=== PATIENT | female | born 1945 | race Two or more races ===

== ENCOUNTER 2022-12-13 18:40 | Inpatient (IN) | payer MEDICARE, MEDICAID ==
[~2022-12-13] VITALS: Ht 172.7 cm; Wt 60.7 kg
[2022-12-13 19:45] LABS: Basophils # (auto) 0.1 10 ^3/uL (0-0.2); Eosinophils # (auto) 0.1 10 ^3/uL (0-0.8); Eosinophils % (auto) 0.9 % (0.0-7.0); Hematocrit 33.3 % (36.0-46.0); Hemoglobin 10.9 g/dL (12.2-16.2); Lymphocytes # (auto) 1.2 10 ^3/uL (0.4-5.4); Lymphocytes % (auto) 19.3 % (10.0-50.0); Mean Corpuscular Hemoglobin 29.5 pg (28.0-32.0); Mean Corpuscular Hgb Conc. 32.8 g/dL (32.0-36.0); Monocytes # (auto) 0.4 10 ^3/uL (0-1.3); Monocytes % (auto) 6.2 % (0.0-12.0); Neutrophils # (auto) 4.5 10 ^3/uL (1.6-8.6); Neutrophils % (auto) 72.6 % (37.0-80.0); Nucleated Red Blood Cells % 0.1 %; Red Cell Distribution Width 18.7 % (11.8-14.3); White Blood Cell 6.2 10^3/uL (4.4-10.8)
[2022-12-13 20:03] LABS: Albumin 1.9 g/dL (3.4-5.0); Calcium 7.9 mg/dL (8.5-10.1); Potassium 4.1 mmol/L (3.5-5.1)
[2022-12-13 20:11] LABS: BUN/Creatinine Ratio 32.3 (10.0-20.0); Bilirubin, Total 0.5 mg/dL (0.2-1.0); Total Protein 5.5 g/dL (6.4-8.2)
[2022-12-13 21:27] VITALS: PULSE 97; RESP 20; O2SAT 96
[2022-12-14 03:50] LABS: Urine Bacteria NONE SEEN /hpf (None Seen); Urine Blood 1+ /uL (Negative); Urine WBC 290 /hpf (0 - 5); Urine WBC Clumps PRESENT /hpf (None Seen)
[2022-12-14] MEDS ORDERED: cefTRIAXone 1GM/50ML D5W 50 ML IV ONE (04:00)
[2022-12-14] MEDS ORDERED: LACTATED RINGER'S 1,000 ML IV ONE (04:00)
[2022-12-14 04:15] VITALS: PULSE 91; RESP 18; O2SAT 98
[2022-12-14] MEDS ORDERED: MORPHINE SULFATE INJ 2 MG/ml SYRG IV PRN (05:00)
[2022-12-14] MEDS ORDERED: ACETAMINOPHEN 325 MG TAB PO PRN (05:00)
[2022-12-14] MEDS ORDERED: NITROGLYCERIN 0.4 MG SL TAB SL PRN (05:00)
[2022-12-14] MEDS ORDERED: ONDANSETRON HCL 4 MG/2 ML VIAL IV PRN (05:00)
[2022-12-14 08:00] VITALS: PULSE 84; RESP 18; O2SAT 96
[2022-12-14] MEDS ORDERED: PANTOPRAZOLE 40 MG TAB PO SCH (10:00)
[2022-12-14] MEDS: FUROSEMIDE 20 MG TAB PO SCH (11:39)
[2022-12-14] MEDS: DIGOXIN 0.125 MG TAB PO SCH (11:40)
[2022-12-14] MEDS: APIXABAN 2.5 MG TAB PO SCH ×3 (11:40→21:18)
[2022-12-14] MEDS: METOPROLOL SUCCINATE XL 50 MG TAB PO SCH (11:41)
[2022-12-14] MEDS: SODIUM CHLORIDE 0.9% 1,000 ML IV SCH (14:45)
[2022-12-14 19:20] VITALS: PULSE 82; RESP 18; O2SAT 95
[2022-12-14] MEDS: ATORVASTATIN 20 MG TAB PO SCH ×2 (21:12→21:18)
[2022-12-15] MEDS: SODIUM CHLORIDE 0.9% 1,000 ML IV SCH ×2 (00:50→13:20)
[2022-12-15 00:52] VITALS: BP 99/63; PULSE 79; RESP 16; TEMP 97.5; O2SAT 94
[2022-12-15] MEDS ORDERED: CLIN-203 PO (01:42)
[2022-12-15] MEDS ORDERED: ATOR40TA52 PO (01:42)
[2022-12-15] MEDS ORDERED: FUR20T PO (01:42)
[2022-12-15] MEDS ORDERED: AMIO200T13 PO (01:42)
[2022-12-15] MEDS ORDERED: FAMO-12 PO (01:42)
[2022-12-15] MEDS ORDERED: METO25TA93 PO (01:42)
[2022-12-15] MEDS ORDERED: DIGO0.12 PO (01:42)
[2022-12-15] MEDS ORDERED: APIX2.5T PO (01:42)
[2022-12-15 05:00] VITALS: BP 105/64; PULSE 78; RESP 16; TEMP 97; O2SAT 94
[2022-12-15 08:00] VITALS: BP 93/50; PULSE 82; RESP 16; TEMP 97.3; O2SAT 94
[2022-12-15] MEDS: cefTRIAXone 1GM/50ML D5W 50 ML IV SCH (08:45)
[2022-12-15] MEDS: FUROSEMIDE 20 MG TAB PO SCH (10:00)
[2022-12-15] MEDS: METOPROLOL SUCCINATE XL 50 MG TAB PO SCH (10:00)
[2022-12-15] MEDS: DIGOXIN 0.125 MG TAB PO SCH (10:00)
[2022-12-15] MEDS: APIXABAN 2.5 MG TAB PO SCH ×2 (10:00→21:09)
[2022-12-15 15:08] LABS: Basophils # (auto) 0.1 10 ^3/uL (0-0.2); Basophils % (auto) 1.1 % (0.0-2.0); Eosinophils # (auto) 0.1 10 ^3/uL (0-0.8); Eosinophils % (auto) 2.4 % (0.0-7.0); Hematocrit 29.1 % (36.0-46.0); Hemoglobin 9.5 g/dL (12.2-16.2); Lymphocytes # (auto) 0.8 10 ^3/uL (0.4-5.4); Lymphocytes % (auto) 14.5 % (10.0-50.0); Mean Corpuscular Hemoglobin 29.5 pg (28.0-32.0); Mean Corpuscular Hgb Conc. 32.5 g/dL (32.0-36.0); Mean Corpuscular Volume 90.7 fL (80.0-100.0); Monocytes # (auto) 0.3 10 ^3/uL (0-1.3); Monocytes % (auto) 5.9 % (0.0-12.0); Neutrophils % (auto) 76.1 % (37.0-80.0); Nucleated Red Blood Cells % 0.1 %; Red Blood Cells 3.21 10^6/uL (4.0-5.20); Red Cell Distribution Width 18.4 % (11.8-14.3); White Blood Cell 5.3 10^3/uL (4.4-10.8)
[2022-12-15 16:05] LABS: Potassium 3.8 mmol/L (3.5-5.1)
[2022-12-15 16:12] LABS: Calcium 7.5 mg/dL (8.5-10.1)
[2022-12-15 20:00] VITALS: PULSE 82; RESP 16; O2SAT 94
[2022-12-15] MEDS: ATORVASTATIN 20 MG TAB PO SCH (21:08)
[2022-12-15 22:00] VITALS: BP 87/58; PULSE 77; RESP 17; TEMP 98.8; O2SAT 99
[2022-12-15] MEDS: diphenhdrAMINE HCL 25 MG CAP PO ONE (23:03)
[2022-12-15 23:12] VITALS: PULSE 82
[2022-12-16] VITALS (7 sets, daily range): BP systolic 99–107; BP diastolic 47–58; PULSE 71–86; RESP 16–20; TEMP 97.5–97.9; O2SAT 94–99
[2022-12-16] MEDS: diphenhdrAMINE HCL 25 MG CAP PO ONE (00:24)
[2022-12-16 06:01] LABS: Basophils # (auto) 0.1 10 ^3/uL (0-0.2); Basophils % (auto) 1.2 % (0.0-2.0); Eosinophils # (auto) 0.3 10 ^3/uL (0-0.8); Eosinophils % (auto) 4.3 % (0.0-7.0); Hematocrit 27.2 % (36.0-46.0); Hemoglobin 8.8 g/dL (12.2-16.2); Lymphocytes # (auto) 1.2 10 ^3/uL (0.4-5.4); Lymphocytes % (auto) 20.2 % (10.0-50.0); Mean Corpuscular Hemoglobin 29.8 pg (28.0-32.0); Mean Corpuscular Hgb Conc. 32.4 g/dL (32.0-36.0); Monocytes # (auto) 0.4 10 ^3/uL (0-1.3); Monocytes % (auto) 7.5 % (0.0-12.0); Neutrophils # (auto) 3.9 10 ^3/uL (1.6-8.6); Neutrophils % (auto) 66.8 % (37.0-80.0); Nucleated Red Blood Cells % 0.1 %; Red Blood Cells 2.96 10^6/uL (4.0-5.20); Red Cell Distribution Width 18.4 % (11.8-14.3); White Blood Cell 5.9 10^3/uL (4.4-10.8)
[2022-12-16 06:06] LABS: Calcium 7.4 mg/dL (8.5-10.1); Potassium 3.6 mmol/L (3.5-5.1)
[2022-12-16 06:09] LABS: BUN/Creatinine Ratio 28.6 (10.0-20.0)
[2022-12-16] MEDS: SODIUM CHLORIDE 0.9% 1,000 ML IV SCH (06:45)
[2022-12-16] MEDS: cefTRIAXone 1GM/50ML D5W 50 ML IV SCH (09:00)
[2022-12-16] MEDS: APIXABAN 2.5 MG TAB PO SCH ×2 (09:36→22:40)
[2022-12-16] MEDS: METOPROLOL SUCCINATE XL 50 MG TAB PO SCH (09:36)
[2022-12-16] MEDS: DIGOXIN 0.125 MG TAB PO SCH (09:36)
[2022-12-16] MEDS: MUPIROCIN 2% OINT 15gm or 22gm FOR MRSA NARES EACHNOSTRI SCH ×2 (09:36→22:43)
[2022-12-16] MEDS: FUROSEMIDE 20 MG TAB PO SCH (09:37)
[2022-12-16] MEDS: Ensure Enlive Strawberry 8oz Bottle PO SCH ×2 (12:00→18:01)
[2022-12-16] MEDS: diphenhdrAMINE HCL 25 MG CAP PO PRN (18:01)
[2022-12-16] MEDS: ATORVASTATIN 20 MG TAB PO SCH (22:41)
[2022-12-17] MEDS: SODIUM CHLORIDE 0.9% 1,000 ML IV SCH ×3 (00:53→22:45)
[2022-12-17 05:00] VITALS: BP 112/69; PULSE 100; RESP 19; TEMP 97.8; O2SAT 95
[2022-12-17 06:52] LABS: Potassium 3.8 mmol/L (3.5-5.1)
[2022-12-17 06:56] LABS: Calcium 7.6 mg/dL (8.5-10.1)
[2022-12-17 07:11] LABS: Basophils # (auto) 0.1 10 ^3/uL (0-0.2); Basophils % (auto) 1.2 % (0.0-2.0); Eosinophils # (auto) 0.2 10 ^3/uL (0-0.8); Eosinophils % (auto) 3.6 % (0.0-7.0); Hematocrit 27.5 % (36.0-46.0); Hemoglobin 9.1 g/dL (12.2-16.2); Lymphocytes # (auto) 1.2 10 ^3/uL (0.4-5.4); Lymphocytes % (auto) 20.4 % (10.0-50.0); Mean Corpuscular Hgb Conc. 33.2 g/dL (32.0-36.0); Mean Corpuscular Volume 90.3 fL (80.0-100.0); Monocytes # (auto) 0.5 10 ^3/uL (0-1.3); Monocytes % (auto) 8.1 % (0.0-12.0); Neutrophils % (auto) 66.7 % (37.0-80.0); Nucleated Red Blood Cells % 0.1 %; Red Blood Cells 3.04 10^6/uL (4.0-5.20); Red Cell Distribution Width 18.6 % (11.8-14.3); White Blood Cell 5.9 10^3/uL (4.4-10.8)
[2022-12-17 08:00] VITALS: BP 110/74; PULSE 85; PULSE 87; RESP 16; TEMP 98.1; O2SAT 95
[2022-12-17] MEDS: Ensure Enlive Strawberry 8oz Bottle PO SCH ×3 (08:00→18:00)
[2022-12-17] MEDS: cefTRIAXone 1GM/50ML D5W 50 ML IV SCH (10:42)
[2022-12-17] MEDS: APIXABAN 2.5 MG TAB PO SCH ×2 (10:43→21:58)
[2022-12-17] MEDS: METOPROLOL SUCCINATE XL 50 MG TAB PO SCH (10:43)
[2022-12-17] MEDS: DIGOXIN 0.125 MG TAB PO SCH (10:43)
[2022-12-17] MEDS: Pro-Stat SF 30ml Vanilla PO SCH (10:44)
[2022-12-17] MEDS: FUROSEMIDE 20 MG TAB PO SCH (10:44)
[2022-12-17] MEDS: MUPIROCIN 2% OINT 15gm or 22gm FOR MRSA NARES EACHNOSTRI SCH ×2 (10:45→21:58)
[2022-12-17 13:00] VITALS: BP 115/65; PULSE 74; RESP 16; TEMP 98.3; O2SAT 95
[2022-12-17] MEDS: diphenhdrAMINE HCL 25 MG CAP PO PRN (15:25)
[2022-12-17 17:00] VITALS: BP 111/73; PULSE 82; RESP 16; TEMP 98.1; O2SAT 96
[2022-12-17 20:00] VITALS: PULSE 74; PULSE 76; RESP 18; O2SAT 95
[2022-12-17] MEDS: ATORVASTATIN 20 MG TAB PO SCH (21:58)
[2022-12-17 22:00] VITALS: BP 120/70; PULSE 76; RESP 18; TEMP 97.8; O2SAT 95
[2022-12-18] VITALS (9 sets, daily range): BP systolic 93–132; BP diastolic 42–72; PULSE 73–100; RESP 16–20; TEMP 97.8–98.2; O2SAT 94–97
[2022-12-18] MEDS: HYDROcodone-ACET 5/325MG TAB PO PRN ×2 (05:26→21:15)
[2022-12-18 06:27] LABS: Basophils # (auto) 0 10 ^3/uL (0-0.2); Basophils % (auto) 0.8 % (0.0-2.0); Eosinophils # (auto) 0.1 10 ^3/uL (0-0.8); Eosinophils % (auto) 2.3 % (0.0-7.0); Hematocrit 28.6 % (36.0-46.0); Hemoglobin 9.4 g/dL (12.2-16.2); Lymphocytes % (auto) 15.5 % (10.0-50.0); Mean Corpuscular Hemoglobin 29.8 pg (28.0-32.0); Mean Corpuscular Hgb Conc. 32.8 g/dL (32.0-36.0); Monocytes # (auto) 0.4 10 ^3/uL (0-1.3); Monocytes % (auto) 6.7 % (0.0-12.0); Neutrophils # (auto) 4.7 10 ^3/uL (1.6-8.6); Neutrophils % (auto) 74.7 % (37.0-80.0); Nucleated Red Blood Cells % 0.1 %; Red Blood Cells 3.14 10^6/uL (4.0-5.20); Red Cell Distribution Width 18.3 % (11.8-14.3); White Blood Cell 6.3 10^3/uL (4.4-10.8)
[2022-12-18 06:46] LABS: BUN/Creatinine Ratio 27.8 (10.0-20.0); Calcium 7.5 mg/dL (8.5-10.1); Potassium 3.8 mmol/L (3.5-5.1)
[2022-12-18] MEDS: cefTRIAXone 1GM/50ML D5W 50 ML IV SCH (08:15)
[2022-12-18] MEDS: Ensure Enlive Strawberry 8oz Bottle PO SCH ×3 (08:16→18:00)
[2022-12-18] MEDS: diphenhdrAMINE HCL 25 MG CAP PO PRN (09:38)
[2022-12-18] MEDS: APIXABAN 2.5 MG TAB PO SCH (09:38)
[2022-12-18] MEDS: MUPIROCIN 2% OINT 15gm or 22gm FOR MRSA NARES EACHNOSTRI SCH (09:39)
[2022-12-18] MEDS: METOPROLOL SUCCINATE XL 50 MG TAB PO SCH (09:40)
[2022-12-18] MEDS: FUROSEMIDE 20 MG TAB PO SCH (09:40)
[2022-12-18] MEDS: Pro-Stat SF 30ml Vanilla PO SCH (09:41)
[2022-12-18] MEDS: SODIUM CHLORIDE 0.9% 1,000 ML IV SCH (09:49)
[2022-12-18] MEDS: DIGOXIN 0.125 MG TAB PO SCH (12:05)
[2022-12-18] MEDS ORDERED: LEVO500T91 PO (17:47)
[2022-12-19] VITALS (7 sets, daily range): BP systolic 112–122; BP diastolic 58–69; PULSE 76–85; RESP 16–18; TEMP 97.8–98.2; O2SAT 95–97
[2022-12-19] MEDS: MUPIROCIN 2% OINT 15gm or 22gm FOR MRSA NARES EACHNOSTRI SCH ×3 (00:10→20:24)
[2022-12-19] MEDS: ATORVASTATIN 20 MG TAB PO SCH ×2 (00:10→20:23)
[2022-12-19] MEDS: APIXABAN 2.5 MG TAB PO SCH ×3 (00:10→20:23)
[2022-12-19] MEDS: diphenhdrAMINE HCL 25 MG CAP PO PRN ×2 (00:50→09:02)
[2022-12-19] MEDS: SODIUM CHLORIDE 0.9% 1,000 ML IV SCH ×2 (01:25→14:45)
[2022-12-19] MEDS: Ensure Enlive Strawberry 8oz Bottle PO SCH ×2 (08:49→12:45)
[2022-12-19] MEDS: cefTRIAXone 1GM/50ML D5W 50 ML IV SCH (08:49)
[2022-12-19] MEDS: DIGOXIN 0.125 MG TAB PO SCH (09:01)
[2022-12-19] MEDS: METOPROLOL SUCCINATE XL 50 MG TAB PO SCH (09:02)
[2022-12-19] MEDS: FUROSEMIDE 20 MG TAB PO SCH (09:02)
[2022-12-19] MEDS: Pro-Stat SF 30ml Vanilla PO SCH (09:04)
== END 2022-12-19 22:30 | DRG 52 ==
LOC: ER 18:40 → EDBD 18:40 → TELE 12-14 05:05 → TELE-EAST 12-14 23:41 → EAST 12-18 15:01
PROVIDERS: ADMIT Internal Medicine; ATTEND Internal Medicine
DX: G93.41 Metabolic encephalopathy (principal); L89.214 Pressure ulcer of right hip, stage 4; E44.0 Moderate protein-calorie malnutrition; I48.91 Unspecified atrial fibrillation; E78.5 Hyperlipidemia, unspecified; I10 Essential (primary) hypertension; N39.0 Urinary tract infection, site not specified; M25.551 Pain in right hip; M25.552 Pain in left hip; Z16.20 Resistance to unspecified antibiotic; Z68.1 Body mass index [BMI] 19.9 or less, adult; Z79.01 Long term (current) use of anticoagulants; Z79.899 Other long term (current) drug therapy; Z86.73 Personal history of transient ischemic attack (TIA), and cerebral infarction without residual deficits; Z74.01 Bed confinement status
CPT/HCPCS: 36415; 70450; 71045; 73502; 80048; 80053; 81001; 83605; 85025; 87040; 87077; 87081; 87086; 87186; 87205; 93005; 97163; G0378; J0696